=== PATIENT | female | born 1980 | race Caucasian/White ===

== ENCOUNTER 2019-08-17 05:55 | Day surgery (SDC) | payer BC, SELFPAY ==
[2019-08-12 19:05] LABS: Probe Check PASS; Specimen Processing Control PASS
--- NOTE | 2019-08-15 | MASS_PTH ---
PATIENT: THOMAS RODRIGUEZ [place] [facility] [place][id number] AGE/SX: 39/F ROOM: RE08/17/[address]: Dr. Dionte Zhang MD : 1980 BED: DIS: 08/17/2019 SPEC #: [id number] RECD: 08/17/19 08:27 STATUS: ANGELIC MARIA E #: [id number] KEMAR: 08/15/19 00:[address]: Dionte Zhang DEPT: SURGICAL PATHOLOGY RECD BY: Juan Jose Stanton ENTERED: 08/17/19 08:48 SP TYPE: Mass OTHR DR: Dr. Julio Rivera MD Tissues: Cheek, NOS Procedures: Surgery Specimen Level III HEADER OPERATION: Excision infected soft tissue mass cheek PRE-OP DIAGNOSIS: 1.5 cm infected soft tissue mass right medial cheek by melolabial fold TISSUE SUBMITTED: 1.5 cm infected soft tissue mass right medial cheek by melolabial fold MICROSCOPIC DIAGNOSIS Infected soft tissue mass, cheek, excision: Epidermal inclusion cyst. KALA:nancy 08/18/19 MICROSCOPIC DESCRIPTION Slides are reviewed. GROSS DESCRIPTION Received in fixative is one container labeled with the patient's name and designated 1.5 cm infected soft tissue mass right medial cheek by melolabial fold. The specimen consists of a piece of lawrence-white skin ellipse measuring 1.5 x 0.3 cm and up to 0.8 cm in thickness. Also present in the container are two pieces of soft tissue measuring in aggregate 1.5 x 1.5 x 0.5 cm. All three pieces are bisected. The entire specimen is submitted in one cassette. / KALA:nancy 08/17/19 TC:5 CPT: 33331
--- NOTE | 2019-08-16 21:59 | PCM.HP.BLA ---
History and Physical Date of Admission: 08/17/19 HISTORY OF PRESENT ILLNESS 39 year old female presents for evaluation of right medial cheek abscess by the melolabial fold, that required and incision and drainage procedure on 05/05/19 by her PCP. She was placed on Doxycycline at that time. The redness and swelling resolved. She can still feel a soft tissue mass in this area. She presents today for further evaluation and treatment. PAST MEDICAL HISTORY Anxiety and depression Asthma Cervical cancer Premenstrual dysphoric disorder Shoulder pain PAST SURGICAL HISTORY bilateral breast reduction surgery cholecystectomy ALLERGIES No Known Allergies MEDICATIONS albuterol sulfate 90 mcg/actuation aerosol inhaler doxycycline hyclate fluconazole fluoxetine fluoxetine metoprolol succinate montelukast tizanidine FAMILY HISTORY Mother - Anxiety, Brain cancer, Diabetes, Hypertension, Skin cancer Sister - Anxiety Grandmother - Anxiety, Breast cancer, Lung cancer Grandmother - Diabetes Father - Hypertension, Lung cancer Grandfather - Heart disease SOCIAL HISTORY Smoking Status: Heavy Smoker (>10/day) counseling given: provider counseling, counseling >10 minutes alcohol intake: never substance use type: does not use REVIEW OF SYSTEMS General - Denies fever or weight loss. She does complain of fatigue. Eyes - Denies cataracts and glaucoma. ENT - Denies nasal congestion and sore throat at this time but has history of sinus/rhinitis infections. Endocrine - Denies excessive thirst and urination. Bilateral breast reduction 2003. Skin - Denies suspicious lesions and skin cancer. Musculoskeletal - Denies weakness of muscles and joints, back pain, and arthritis. Complains of joint pain and joint stiffness, mostly of right shoulder. Neuro - Has history of headaches related to right shoulder pain. Cardiovascular - Denies chest pain, fatigue, and shortness of breath with exertion. Psych - History of anxiety and depression which is managed on Prozac and Metoprolol. Respiratory - Has a history of Asthma and sleep apnea. She smokes cigarettes. Gastrointestinal - Denies nausea, vomiting, diarrhea, and constipation. Cholecystectomy 2011. Hematologic - Denies abnormal bruising and bleeding. Genitourinary - Denies hematuria and urinary frequency. History of kidney stones. PHYSICAL EXAMINATION General - Alert and oriented. HEENT - PERRL. EOMI. Throat is clear. On the right medial cheek by melolabial fold is a soft tissue mass that was recently infected that necessitated I&D. Measures 1.5 cm. It is mobile. Nontender. No ulceration. No other suspicious lesions noted. Neck - Supple and non-tender. No cervical adenopathy. No suspicious lesions noted. Lungs- Clear to auscultation. Heart - Regular rate and rhythm. Abdomen - Soft and non distended. Extremities - FROM. No axillary adenopathy. Radial pulses are palpable. No suspicious lesions noted. Neuro - CN II-XII grossly intact. Psych - Normal mood and affect. ASSESSMENT 1. 1.5 cm infected soft tissue mass right medial cheek by melolabial fold. 2. Smoker. 3. s/p I&D. PLAN The infected soft tissue mass is stable at the present time. Now is a good time to proceed with excision of this infected soft tissue mass and send it to Pathology for analysis to rule out carcinoma. Depending on what is seen at surgery, some of the tissue may be sent to Microbiology for culture. A positive culture will necessitate antibiotic therapy. Will renew her Doxycycline that she will take for flare ups prior to surgery. She states she gets a yeast infection with antibiotics and will write script for some Diflucan. Will schedule the surgery on an outpatient basis under local anesthesia and IV sedation. If there is adherence of the soft tissue mass to the skin, some additional skin may need to be excised. If a large amount of skin needs to be excised to minimize recurrence, a local skin flap may be needed for reconstruction. She wants to proceed. If she waits, there is the chance that it may get re-infected. She states she doesn't want to experience that pain and redness and swelling ever again. She understands that if she has a flare up at the time of surgery, we will still excise the infected soft tissue mass but won't be able to close the wound and would begin daily dressing changes with Silver dressings. Later on when the infection has cleared up, can proceed with further operative debridement and secondary wound closure. She is aware of that possibility and wishes to proceed. Patient was informed of the risks and complications of the procedure including alternatives to surgery. These were discussed with the patient personally. Patient voices understanding and wishes to proceed. Some of the risks and complications were included in a form from the [employer]. Encouraged patient to stop smoking as it may have deleterious effects on wound healing. We discussed the current risks associated with COVID-19. While it is understood that there is a community spread of COVID-19, the risk of sascha COVID-19 while at [facility] ([facility]) is very low; however, the risk cannot be completely mitigated because of the community spread of the disease. We discussed in detail the risk of exposure to and/or potential harm posed by the COVID-19 virus with having a surgery/procedure at this time versus the risk of delaying the surgery/procedure. It is not possible to know either the risk of delaying the surgery or procedure or chance of getting an infection with perfect accuracy, but a joint decision was made to proceed at this time with the scheduled surgery/procedure as indicated on the consent form. Patient was notified that we will need to comply with any screening or testing [facility] wishes to perform or that surgery may be delayed for any positive results. At the present time there is no testing for the surgeons. The hospital is working on a policy for that to have the surgeon and surgical staff tested. So she has the option to wait until the surgeon and surgical staff are tested or she can proceed with the surgery at this time before the surgeon and surgical staff are tested. As long as the mass in question doesn't dramatically increase in size, the surgery can be temporarily delayed until surgeon and surgical staff testing are done. She thought about the risks and wishes to proceed with surgery at this time. Procedure Criteria Procedure Type: Elective COVID Risk Discussion: The surgeon/proceduralist and patient have discussed in detail the risk of exposure to and/or potential harm posed by the COVID-19 virus with having a surgery/procedure at this time versus the risk of delaying the surgery/procedure. It is not possible to know either the risk of delaying the surgery or procedure or chance of getting an infection with perfect accuracy, but a joint decision was made between the patient and the surgeon/proceduralist to proceed at this time with the scheduled surgery/procedure as indicated on the consent form.
[2019-08-17] VITALS (7 sets, daily range): BP systolic 103–118; BP diastolic 66–81; PULSE 68–74; RESP 16–18; TEMP 35.9–36.2; O2SAT 94–99; BMI 37.3
[2019-08-17 06:35] LABS: Internal QC Validated? YES +Cl - CLEAR BKGD; Pregnancy, Urine Negative Negative
[2019-08-17] MEDS: Lactated Ringers 1,000 ML 100 ML IV (06:35)
[2019-08-17] MEDS: Mupirocin Ointment 22gm Tube 1 APPLIC (08:11)
--- NOTE | 2019-08-17 08:17 | PCM.OPRPT ---
Report of Operation Date of Procedure: 08/17/19 Pre-Operative Diagnosis: 1. 1.5 cm infected soft tissue mass right medial cheek by melolabial fold. 2. Smoker. 3. s/p I&D. Post-Operative Diagnosis: Same. Surgery/Procedure Performed:: Excision 1.5 cm infected soft tissue mass right medial cheek by melolabial fold with 2 cm layered closure. Description of Surgical Findings:: 39 year old female presents for evaluation of right medial cheek abscess by the melolabial fold, that required and incision and drainage procedure on 05/05/19 by her PCP. She was placed on Doxycycline at that time. The redness and swelling resolved. She can still feel a soft tissue mass in this area. Patient was informed of the risks and complications of the procedure including alternatives to surgery. These were discussed with the patient personally. Patient voices understanding and wishes to proceed. Some of the risks and complications were included in a form from the [employer]. Encouraged patient to stop smoking as it may have deleterious effects on wound healing. appraisal technician: None Type of Anesthesia:: Local MAC - xylocaine with epinephrine and IV sedation. Specimen's removed: Infected soft tissue mass right medial cheek by melolabial fold to Pathology and Microbiology. Drains: None. Estimated Blood Loss (mL): 5 ml. Description of Procedure: Patient was taken to OR in supine position and was given IV sedation. The right face was prepped and draped in the usual fashion. SCD's were placed for DVT prophylaxis. Perioperative antibiotics were given intravenously. For the surgery I wore an N95 mask and wore proper eye protection. The infected soft tissue mass right medial cheek by melolabial fold was infiltrated with xylocaine and epinephrine. After waiting 5 minutes for the anesthetic to take effect, I made an oblique elliptical excision around the portion of the mass that was adherent to the overlying skin. Dissection was carried into the subcutaneous tissue. The mass was multilobulated and there was surrounding scar tissue indicative of the chronic nature of the infection. It was also adherent to the underlying muscle and was dissected off the muscle. The mass was sent to Pathology for analysis to rule out carcinoma and a small amount of the tissue was sent to Microbiology for culture. A positive culture will necessitate antibiotic therapy. Hemostasis was obtained with electrocautery. The wound was closed in a layered fashion with 5-0 Monocryl interrupted sutures for the deep dermis and subcutaneous tissue. The skin was approximated with 6-0 Prolene simple interrupted sutures. Steri-strips were applied followed by antibiotic ointment. Patient tolerated the procedure well and was sent to PACU in satisfactory condition. Patient will be sent home on antibiotics and pain medication. She will keep her head elevated during the initial postoperative period. Patient will followup in a week for a wound check and for discussion of the pathology report and for discussion of the microbiology report and for removal of the sutures. A positive culture will necessitate antibiotic therapy. Grafts/Implants Used: None. - Complications None. - Admit VTE Documentation VTE Present on Admission: No VTE Mechan Device Prophylaxis: SCD's VTE Pharm Prophylaxis ordered?: No Surgery Charges CPT - 77449 ICD-10 - R22.0, Z98.890, F17.200, Z87.2
--- NOTE | 2019-08-17 09:00 | DCINST_ITS ---
You will use the following diet at home:: No restrictions Discharge Activity: May not drive while taking narcotic pain medications., May Shower - in two days., - - keep head elevaterd. no heavy lifting. May shower in (days): 2 May resume sexual activity in: No Restrictions Ice area for (Minutes): 5 - as needed for facial swelling. Weight Bearing Status: Weight bearing as tolerated Lifting Restrictions: 20 lbs. Keep extremity elevated above heart level: - - elevate head. Call your doctor if your incision/area has: Continuous Slow Oozing, Sudden Increased Bleeding, Increased Pain/ Swelling, Increased Redness, Foul Smelling Discharge, Swelling at the incision site Call your doctor if you observe: Fever of 101 or Higher, Coldness, Increased Pain, Shortness of breath, Chest pain, Calf discomfort, Uncontrolled pain Suture Line Care: - - apply antibiotic ointment to suture line daily. Cleanse incision/area with: - - may get incision wet in the shower in two days. Additional Dressing/Incision Instructions:: if the steri-strips come loose, patient may remove them. Otherwise they will be removed in the office. Allergies/Adverse Reactions: Allergies No Known Allergies Allergy (Verified 08/17/19 06:22) Medications to take at Discharge albuterol sulfate 90 mcg/actuation aerosol inhaler 2 puff INHALATION Q4H PRN g 06/18/19 fluoxetine 20 mg capsule 20 mg PO .PRN cap 06/18/19 fluoxetine 40 mg capsule 40 mg PO DAILY 06/18/19 metoprolol succinate 25 mg capsule sprinkle, ext. release 24 hr 25 mg PO .PRN ea 06/18/19 montelukast 10 mg tablet 10 mg PO QPM 06/18/19 tizanidine 4 mg capsule 4 mg PO .PRN cap 06/18/19 Fluconazole 150 mg PO DAILY PRN 08/07/19 Clindamycin HCl [Cleocin] 300 mg PO TID #15 cap 08/17/19 Oxycodone HCl/Acetaminophen [Percocet 5/325] 1 tablet PO TID PRN PRN 7 Days #21 tablet 08/17/19 The following prescriptions were given: Clindamycin HCl [Cleocin] 300 mg PO TID #15 cap Transmission Status: Pending to [facility]/pharmacy #[id number] Oxycodone HCl/Acetaminophen [Percocet 5/325] 1 tablet PO TID PRN PRN 7 Days #21 tablet PRN Reason: Pain Score 4-5/10 Transmission Status: Received by [facility]/pharmacy #[id number] Primary Care Physician: Julio Rivera MD [Primary Care Provider] - Test Results: Test results from this visit will be discussed in further detail at your follow- up appointment, if applicable. Please Follow Up With: Dionte Zhang MD When: one week. call [phone] for appt. Proposed Discharge Date: 08/17/19
== END 2019-08-17 09:16 | disposition home or self-care (01) ==
LOC: SDC 05:55 → AC 05:56
PROVIDERS: Anesthesiology; PCP Family Medicine; Referring Provider Surgery; Visit Provider Surgery
PROC: (CPT 21011; principal; 2019-08-17 07:20)
DX: L72.0 Epidermal cyst (principal); Z98.890 Other specified postprocedural states; Z87.2 Personal history of diseases of the skin and subcutaneous tissue; Z11.59 Encounter for screening for other viral diseases; F41.9 Anxiety disorder, unspecified; F32.9 Major depressive disorder, single episode, unspecified; J45.909 Unspecified asthma, uncomplicated; Z85.41 Personal history of malignant neoplasm of cervix uteri; Z79.899 Other long term (current) drug therapy; F17.200 Nicotine dependence, unspecified, uncomplicated
CPT/HCPCS: 00300; 21011; 81025; 87070; 87075; 87077; 87102; 87176; 87205; 87206; 87635; 88304; 88305; G2023; J7120; J2405; U0003

== ENCOUNTER 2021-05-01 15:50 | Outpatient (CLI) | payer OTHER, SELFPAY ==
--- NOTE | 2021-05-01 15:52 | BI_ITS ---
MAMMOGRAPHY - BILATERAL SCREENING 3-D TOMOSYNTHESIS REASON FOR EXAM: Female, 41 years old. SCREENING PERTINENT HISTORY: No significant family history. TECHNIQUE: 2-D mammograms and 3-D Tomosynthesis of the breast (s) were performed. CAD was performed. COMPARISON: None. FINDINGS: The breast composition is heterogeneously dense that can obscure small breast masses. Scattered benign calcifications are seen. No dense spiculated masses or suspicious microcalcifications are identified. No architectural distortion is identified. There is no skin thickening or retraction. There has been no significant change since the prior study. BI/SCRN MAMM (CAD)W/JOSE BILAT IMPRESSION: No mammographic signs of malignancy. Routine yearly mammograms recommended. ASSESSMENT CATEGORY: BIRADS Category 1: Negative. A letter regarding these results will be sent to the patient by the facility within 30 days. FOLLOW UP RECOMMENDATION: Yearly follow up mammogram recommended. (A) Approximately 10% of breast cancers are not detected by mammography. A normal mammogram should not delay biopsy of a clinically suspicious abnormality. Electronically Signed: Peyman Adams MD at 16:53 EDT ,
== END 2021-05-01 23:59 | disposition home or self-care (01) ==
LOC: OPBI 15:50
PROVIDERS: PCP Family Medicine; Visit Provider Registered Nurse
DX: Z12.31 Encounter for screening mammogram for malignant neoplasm of breast (principal)
CPT/HCPCS: 77063; 77067

== ENCOUNTER → 2022-12-28 | Outpatient (CLI) | payer OTHER, SELFPAY ==
--- NOTE | 2022-12-28 08:13 | BI_ITS ---
MAMMOGRAPHY - BILATERAL SCREENING REASON FOR EXAM: Female, 42 years old. Routine annual screening examination. PERTINENT HISTORY: Grandmother with breast cancer. History of prior bilateral breast reduction surgery. History of bilateral breast scars. TECHNIQUE: Digital bilateral breast jose (3D mammographic acquisition) in the CC and MLO projections. 2-D mediolateral oblique (MLO) and craniocaudad (CC) views of both breasts were obtained. CAD: Full Field Digital Mammography with Computer Added Detection was performed. COMPARISON: Comparison is made with prior study May 01, 2021. FINDINGS: Breast Composition: The breasts are heterogeneously dense, which may obscure small masses. There are no dominant masses or suspicious calcifications. Stable retroareolar density calcified nodules in keeping with history of prior surgery and postoperative dystrophic changes. Stable small benign-appearing bilateral axillary lymph nodes. No other significant abnormalities are identified. There has been no significant change since the prior study. BI/SCRN MAMM (CAD)W/JOSE BILAT IMPRESSION: Stable bilateral screening mammogram. Yearly follow-up mammogram recommended. (A) ASSESSMENT CATEGORY: BIRADS Category 2: Benign. A letter regarding these results will be sent to the patient by the facility within 30 days. Approximately 10% of breast cancers are not detected by mammography. A normal mammogram should not delay biopsy of a clinically suspicious abnormality. [id number] Electronically Signed: Denny Sheldon MD at 9:24 EST ,
== END | disposition home or self-care (01) ==
LOC: OPBI 08:12
PROVIDERS: PCP Family Medicine; Referring Provider Family Medicine; Visit Provider Family Medicine
DX: Z12.31 Encounter for screening mammogram for malignant neoplasm of breast (principal); Z80.3 Family history of malignant neoplasm of breast
CPT/HCPCS: 77063; 77067

== ENCOUNTER → 2024-01-15 | Outpatient (CLI) | payer OTHER, SELFPAY ==
[2024-01-15 11:34] LABS: Anion Gap 5 (5-15); BUN 9 mg/dL (7-18); BUN/Creat Ratio 11.2 RATIO (10-20); Chloride 112 mmol/L (98-107); EST Glomerular Filtration Rate 82 mL/min (>60); Est Glom Filt Rate - Afr Amer 99 mL/min (>60); Glucose 104 mg/dL (74-106); Sodium Level 140 mmol/L (136-145)
== END | disposition home or self-care (01) ==
LOC: MTLAB 07:10
PROVIDERS: PCP Family Medicine; Referring Provider Nurse Practitioner Family; Visit Provider Nurse Practitioner Family
DX: Z13.1 Encounter for screening for diabetes mellitus (principal)
CPT/HCPCS: 36415; 80048

== ENCOUNTER → 2024-02-18 | Outpatient (CLI) | payer OTHER, SELFPAY ==
[2024-02-18 10:25] LABS: Hemoglobin A1c 5.8 % (3.8-5.6)
== END | disposition home or self-care (01) ==
LOC: MTLAB 07:03
PROVIDERS: PCP Family Medicine; Referring Provider Nurse Practitioner Family; Visit Provider Nurse Practitioner Family
DX: R73.01 Impaired fasting glucose (principal)
CPT/HCPCS: 36415; 83036

== ENCOUNTER 2024-04-20 08:22 | Day surgery (SDC) | payer OTHER, SELFPAY ==
[2024-04-20] VITALS (7 sets, daily range): BP systolic 96–134; BP diastolic 58–87; PULSE 73–98; RESP 16–22; TEMP 36.1–36.6; O2SAT 93–98; BMI 36.8
--- NOTE | 2024-04-20 08:37 | HP.PCM_ITS ---
HPI - General General Date of Service: 04/20/24 HPI Narrative THOMAS RODRIGUEZ, is a 44 F who presents for colonoscopy due to positive Cologuard. Patient denies any changes since office visit. Office visit 03/16/2024 HPI HPI: 43-year-old female presents due to positive Cologuard. Patient states she has bowel movements daily denies any blood. Patient denies any chronic abdominal pain/nausea/vomiting/reflux. Patient denies any family history of colon cancer. [facility] Medical History Wears glasses Cancer Anxiety Wears dentures History of IBS Chronic cough CPAP (continuous positive airway pressure) dependence Sleep apnea History of kidney stones Positive colorectal cancer screening using Cologuard test Epidermal inclusion cyst Premenstrual dysphoric disorder Shoulder pain Anxiety and depression Cervical cancer Asthma Allergies Home Medications ?Medication ?Instructions ?Recorded ?Last Taken ?Type albuterol sulfate 90 mcg/actuation 2 puff inhalation Q 4H PRN Asthma 06/18/19 04/20/24 History aerosol inhaler (ProAir HFA) metoprolol succinate 25 mg capsule 25 mg PO PRN PRN an xiety 06/18/19 Unknown History sprinkle, ext. release 24 hr Allergy/AdvReac Type Severity Reaction Status Date / Time procaine (From Novocain) AdvReac Other Verified 04/20/24 08:55 Family History Mother Anxiety Brain cancer Diabetes Hypertension Skin cancer Sister Anxiety Grandmother Anxiety Breast cancer Lung cancer Grandmother Diabetes Father Hypertension Lung cancer Grandfather Heart disease Surgical History History of lithotripsy H/O LEEP History of excision of lesion History of bilateral breast reduction surgery History of cholecystectomy Social History Smoking Status: Heavy Smoker (>10/day) alcohol intake: never substance use type: does not use additional social history: DOES NOT TAKE ASPIRIN DOES TAKE IBUPROFEN NEEDED Past Medical/Surgical History Planned Operation Planned Operative Procedure(s): CSCOPE S.O.S: No Previous Hospitalizations/Surgeries HX Hospitalizations: No HX of Surgeries: bilat breast reduction 2004 leep 1998 gallbladder 2012 kidney stone Any Problems With Anesthesia: No You/Your Family Experience Fever (Hyperthermia) With Anes: No Cholinesterase deficiency: No Cardiovascular Hx Chest Pain within Last 2 months: No Hx of Irregular Heartbeat and/or Afib: No Hx Heart Attack: No Hx Congestive Heart Failure: No Hx Rheumatic Fever: No Hx Hypertension: No Hx Internal Defibrillator: No Hx Pacemaker: No Hx Cardiac Catheterization: No Hx Cardiac Surgery/Stents/Etc.: No Hx Stress Test: No Hx Pain in Legs when Walking/Leg Cramps: No Respiratory Chronic Cough: Yes HX of Shortness of Breath: Yes (states sob with 2 flights stairs) Hoarseness: No Hx Chronic Obstructive Pulmonary Disease (COPD): No Hx Asthma: Yes (inhaler as needed) Hx Emphysema: No Hx Sleep Apnea: Yes CPAP: Yes (NONCOMPLAINT) BIPAP: No Hx Respiratory Tract Infection/Cold (presently): No Result (for STOP score): Positive Hx Smoking: Yes (1ppd x 26 yrs) Smoking Status: Heavy Smoker (>10/day) Gastrointestinal Hx Gastrointestinal Disorders: No Hx Gastrointestinal Bleed: No Hx Ulcer: No Hx Hiatal Hernia: No Difficulty Chewing/Swallowing: No Special diet followed at home: No Hx Unplanned Weight Loss of 20#: No HX Unplanned Weight Gain of 20#: No Neurological Hx Seizures: No HX Syncope/Blackout Spells/Unconsciousness: No Hx Transient Ischemic Attacks (TIA): No Hx Multiple Sclerosis: No Hx Parkinson's Disease: No Hx Head/Neck Injury: No Hx Headaches: Yes (chronic non limiting shoulder pain) Hx Back Injury/Pain: No Recent Onset of Speech Difficulty: No Restless Legs: No Does patient have nerve stimulator: No Blood Disorder Hx Leukemia: No Bleeding Tendencies: No Hx Deep Vein Thrombosis: No Hx High Cholesterol: No Blood Transmitted Disease: No Hx Hepatitis: No Hx Cirrhosis: No Hx Anemia: No Hx Blood Disorders: No Reproduction : No Is Patient Lactating: No Hx Hysterectomy: No Hx Tubal Ligation: No (IUD) Are You Post Menopause: No Genitourinary Hx Renal Disease: No Musculoskeletal Hx Arthritis: No Hx Rheumatoid Arthritis: No Hx Gout: No Recent Onset of an Orthopedic Problem: No Endocrine Hx Diabetes: No Thyroid Disease: No Hx Steroid Therapy: No Psycho/Social Hx Substance Use: No Hx Alcohol Use: No Hx Anxiety: Yes (on med) Hx Depression: Yes (on med) Mental Illness: No Hx Dementia: No Miscellaneous Hx Cancer: Yes (pre ca /LEEP) Recent Exposure to Contagious Disease: No Hx of C-Diff: No Any Loose Teeth: No (upper denture) Allergies procaine (From Novocain) Adverse Reaction (Verified 04/20/24 08:55) Other migraine Discharge Is Pt Admitted From a Long-Term, or a Skilled Nursing: No After D/C, Where Do you Plan to Go: Return Home Physical Exam Const alert, oriented x3 and no apparent distress HEENT normocephalic and head/scalp atraumatic Resp normal respiratory effort Cardio regular rate GI soft to palpation and non-tender; Negative for non-distended Palpation: Negative for guarding Extremity no clubbing, cyanosis or edema Skin no rashes or lesions noted Neuro CN's II-XII intact bilaterally Psych mental status grossly normal Assessment & Plan Assessment/Plan (1) Positive colorectal cancer screening using Cologuard test: Surgery Risks - Colonoscopy I discussed with the patient the risks of the procedure: Yes Risks Include but are not Limited To: Risks include but are not limited to: Bleeding, perforation requiring further surgery, inability to complete colonoscopy requiring barium enema.
--- NOTE | 2024-04-20 09:18 | PCM.PRE.AN2 ---
ASA Classification* ASA Classification ASA Classification: 2 Assessment & Plan Anesthesia* Anesthesia Assessment Anesthesia Assessment: Discussed sedation and/or anesthesia options, risks, benefits, and alternatives with patient/parents/legal guardian/POA. Questions invited. The patient/parents/legal guardian/POA seems to understand and agrees to proceed with anesthesia plan. Reviewed the physical assessment, medical history, allergy history and patient home medications list prior to surgery/procedure/anesthetic and documented any changes. Performed airway and anesthesia risk assessments. Anesthesia Type Anesthesia Type: MAC Anesthesia Focused Assessment* Temperature: 98 F Pulse Rate: 98 Blood Pressure: 134/87 Respiratory Rate: 16 Pulse Ox: 98 Airway Assessment Mouth opens: >3 cm Mallampati Score: II Focused Labs Anesthesia Preop lab: CBC WBC 11.2 K/mm3 (4.4-11.0) H 09/25/13 08:32 09/25/13 RBC 4.83 M/mm3 (4.2-5.4) 09/25/13 08:32 09/25/13 Hgb 15.4 g/dl (12.0-15.0) H 09/25/13 08:32 09/25/13 Hct 45.0 % (37-47) 09/25/13 08:32 09/25/13 Plt Count 413 K/mm3 (150-450) 09/25/13 08:32 09/25/13 CHEMISTRY Potassium 4.0 mmol/L (3.5-5.1) 01/15/24 07:10 01/15/24 Sodium 140 mmol/L (136-145) 01/15/24 07:10 01/15/24 BUN 9 mg/dL (7-18) 01/15/24 07:10 01/15/24 Creatinine 0.80 mg/dL (0.55-1.02) 01/15/24 07:10 01/15/24 Glucose 104 mg/dL (74-106) 01/15/24 07:10 01/15/24 TSH 1.85 uIU/mL (0.358-3.74) 09/25/13 08:32 09/25/13 COAG Urine Test Negative Negative 08/17/19 06:15 08/17/19 Pre-Assessment Diagnosis/Proposed Procedure Planned Operative Procedure(s): CSCOPE Anesthesia History Anesthesia History - manufacturer's representative: Anesthesia History - manufacturer's representative Hx Hospitalization No 04/20/24 08:38 Any Problems With Anesthesia No 04/20/24 08:38 Cholinesterase deficiency No 04/20/24 08:38 You/Your Family Experience No 04/20/24 08:38 fever (hyperthermia) with Relationship Recent Exposure to Contagious No 04/20/24 08:55 Disease Does patient have nerve No 04/20/24 08:38 stimulator Patient instructed to have device shut off --Does patient have Pacemaker No 04/20/24 08:55 or ICD? When Was Last Pacemaker Check QUESTION #4 FULL TEXT: You/Your Family Experience fever (hyperthermia) with Anesthesia Last Oral Intake Last Oral intake: Last Oral Intake NPO since Meds taken in AM with sips of water? Meds patient instructed to take am of surgery PONV PONV - manufacturer's representative: PONV - manufacturer's representative Female Yes 04/15/24 14:26 HX of Motion Sickness No 04/15/24 14:26 HX of N/V After Surgery Yes 04/15/24 14:26 Non-Smoker No 04/15/24 14:26 Duration of Surgery greater No 04/15/24 14:26 than 60 minutes Number of Risk Factors 2 04/15/24 14:26 PONV Score Moderate Risk 04/15/24 14:26 Height & Weight Height & Weight: Anesthesia: Height & Weight Height 4 ft 11 in 04/20/24 08:55 Weight: 82.8 kg 04/20/24 08:55 Body Mass Index (BMI) 36.8 04/20/24 08:55 Respiratory Assessment Respiratory Assessment - manufacturer's representative: Respiratory Tract Infection Hx - manufacturer's representative Hx Respiratory Tract Infection No 04/20/24 08:38 STOP Sleep Apnea STOP Sleep Apnea - manufacturer's representative: STOP Sleep Apnea - manufacturer's representative Hx Hypertension No 04/20/24 08:38 Hx Sleep Apnea Yes 04/20/24 08:38 CPAP Yes: NONCOMPLAINT 04/20/24 08:38 BIPAP No 04/20/24 08:38 Do you snore loudly (louder than talking or can be heard Do you often feel tired/ fatigued/ sleepy during daytime? Has anyone observed you stop breathing during sleep? STOP Results Positive 04/20/24 08:38 QUESTION #5 FULL TEXT : Do you snore loudly (louder than talking or can be heard through closed doors)? 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 Specify any problems Hx of Preganancy in last 3 N/A 04/15/24 14:26 Months Nurse Filling Out Transfusion NBUCHER 04/15/24 14:26 & Questions: Date: 04/15/24 04/15/24 14:26 Time: 14:28 04/15/24 14:26 Patient unable to answer at this time (ie. confused, unrespo /Reproduction History /Reproductive History - manufacturer's representative: /Reproductive Hx- manufacturer's representative Hx Now No 04/20/24 08:38 Gestational Age (in weeks): EDC: Hx Hx Para Hx Section SAB No 04/15/24 14:26 PFSH Medical History Wears glasses Cancer Anxiety Wears dentures History of IBS Chronic cough CPAP (continuous positive airway pressure) dependence Sleep apnea History of kidney stones Positive colorectal cancer screening using Cologuard test Epidermal inclusion cyst Premenstrual dysphoric disorder Shoulder pain Anxiety and depression Cervical cancer Asthma Allergies Home Medications ?Medication ?Instructions ?Recorded ?Last Taken ?Type albuterol sulfate 90 mcg/actuation 2 puff inhalation Q4H PRN Asthma 06/18/19 04/20/24 History aerosol inhaler (ProAir HFA) metoprolol succinate 25 mg capsule 25 mg PO PRN PRN anxiety 06/18/19 Unknown History sprinkle, ext. release 24 hr Allergy/AdvReac Type Severity Reaction Status Date / Time procaine (From Novocain) AdvReac Other Verified 04/20/24 08:55 Family History Mother Anxiety Brain cancer Diabetes Hypertension Skin cancer Sister Anxiety Grandmother Anxiety Breast cancer Lung cancer Grandmother Diabetes Father Hypertension Lung cancer Grandfather Heart disease Surgical History History of lithotripsy H/O LEEP History of excision of lesion History of bilateral breast reduction surgery History of cholecystectomy Social History Smoking Status: Heavy Smoker (>10/day) alcohol intake: never substance use type: does not use additional social history: DOES NOT TAKE ASPIRIN DOES TAKE IBUPROFEN NEEDED Review of Systems (Anesthesia) ROS Narrative System reviewed and no additional complaints, except as documented.
[2024-04-20 09:21] LABS: Internal QC Validated? YES +Cl - CLEAR BKGD
[2024-04-20 09:22] LABS: Pregnancy, Urine Negative Negative
--- NOTE | 2024-04-20 10:24 | PCM.POST.ANE ---
Anesthesia: Postop Eval I Current Vital Signs Temperature: 97 F Pulse Rate: 86 Blood Pressure: 103/66 Respiratory Rate: 22 Pulse Ox: 94 Oxygen Delivery Method: Room Air Assessment Airway patent: Yes Spontaneous unlabored respirations: Yes Mental status: Asleep nausea: No Vomiting: No Anesthesia Complication: No Fluid Hydration Crystalloid volume administer (ml): 60 Total IV fluid infused: 60 Progress Note Anesthesia document: Postop Eval 1 completed: Yes
--- NOTE | 2024-04-20 10:31 | OP.COLON_ITS ---
Patient Name: Caitlin Wyman Procedure Date: 04/20/2024 9:52 AM Date of : 1980 Age: 44 Procedure: Colonoscopy Indications: Positive Cologuard test Providers: Savanna Reynoso MD Referring MD: Julio Rivera Medicines: Monitored Anesthesia Care Patient Profile: This is a 44 year old female. Last Colonoscopy: none. The patient's first colonoscopy is today. Complications: No immediate complications. Procedure: Pre-Anesthesia Assessment: - Prior to the procedure, a History and Physical was performed, and patient medications and allergies were reviewed. The patient's tolerance of previous anesthesia was also reviewed. The risks and benefits of the procedure and the sedation options and risks were discussed with the patient. All questions were answered, and informed consent was obtained. Prior Anticoagulants: The patient has taken no anticoagulant or antiplatelet agents. ASA Grade Assessment: Per anesthesia. After reviewing the risks and benefits, the patient was deemed in satisfactory condition to undergo the procedure. After I obtained informed consent, the scope was passed under direct vision. Throughout the procedure, the patient's blood pressure, pulse, and oxygen saturations were monitored continuously. The pediatric colonoscope was introduced through the anus and advanced to the cecum, identified by the appendiceal orifice, ileocecal valve and palpation. The colonoscopy was performed without difficulty. The patient tolerated the procedure well. The quality of the bowel preparation was good. Scope In: 10:00:30 AM Scope Withdrawal Time 0 hours 8 minutes 16 seconds Scope Out: 10:13:17 AM Total Procedure Duration Time 0 hours 12 minutes 47 seconds Findings: Non-bleeding internal hemorrhoids were found [Method Found]. The hemorrhoids were Grade I (internal hemorrhoids that do not prolapse). The exam was otherwise without abnormality. Impression: - Non-bleeding internal hemorrhoids. - The examination was otherwise normal. - No specimens collected. Recommendation: - Discharge patient to home. - Resume previous diet. - Continue present medications. - Repeat colonoscopy in 10 years for screening purposes. Procedure Code(s): --- Professional --- 36533, PT, Colonoscopy, flexible; diagnostic, including collection of specimen(s) by brushing or washing, when performed (separate procedure) Diagnosis Code(s): --- Professional --- K64.0, First degree hemorrhoids R19.5, Other fecal abnormalities CPT copyright 2021 [employer]. All rights reserved. The codes documented in this report are preliminary and upon derivatives trader review may be revised to meet current compliance requirements. MD Savanna Hernandez MD 04/20/2024 10:30:40 AM This report has been signed electronically. Number of Addenda: 0 Note Initiated On: 04/20/2024 9:52 AM
--- NOTE | 2024-04-20 10:31 | OP.CCLET_ITS ---
04/20/2024 Julio Rivera [address] [place] [address] Re : Colonoscopy procedure for Caitlin Wyman Dear Dr. Rivera This procedure was performed on Saturday, April 20, 2024. My impressions and recommendations are as follows: Impressions : - Non-bleeding internal hemorrhoids. - The examination was otherwise normal. - No specimens collected. Recommendations : - Discharge patient to home. - Resume previous diet. - Continue present medications. - Repeat colonoscopy in 10 years for screening purposes. My findings are described in the full procedure note, which is enclosed. If I can be of further assistance, please feel free to contact me at Doctor phone number(s): , Work: . Sincerely, MD Savanna Hernandez MD 04/20/2024 10:30:40 AM This report has been signed electronically.
--- NOTE | 2024-04-20 10:35 | PCM.POSTANE2 ---
Anesthesia Postop Eval I Sum Postop Eval Completion status Anesthesia document: Postop Eval 1 completed: Yes Anesthesia Postop Eval I Summary Anesthesia Postop Eval I Summary: Anesthesia Postop Eval I: Assessment Summary Airway patent Yes 04/20/24 10:25 [email or web address] Spontaneous unlabored Yes 04/20/24 10:25 [email or web address] respirations Mental status Asleep 04/20/24 10:25 [email or web address] nausea No 04/20/24 10:25 [email or web address] Vomiting No 04/20/24 10:25 [email or web address] Anesthesia Postop Eval I: Fluid Summary Crystalloid volume administer 60 04/20/24 10:25 [email or web address] (ml) Colloids volume administered ( ml) Blood Product volume administered (ml) Total IV fluid infused 60 04/20/24 10:25 [email or web address] Anesthesia Postop Eval I: Summary Notes Anesthesia Complication No 04/20/24 10:25 [email or web address] Anesthesia Complication Comment: Post-operative progress note Anesthesia: Postop Eval II Evaluation Mental status: Awake Pain Level: 0 nausea: No Vomiting: No
== END 2024-04-20 10:52 | disposition home or self-care (01) ==
LOC: EN 08:22 → AC 08:23
PROVIDERS: Anesthesiology; PCP Family Medicine; Referring Provider Family Medicine; Visit Provider Surgery
PROC: 0DJD8ZZ Inspection of Lower Intestinal Tract, Via Natural or Artificial Opening Endoscopic (ICD-10-PCS; CPT 45378; principal; 2024-04-20 09:40)
DX: R19.5 Other fecal abnormalities (principal); K64.0 First degree hemorrhoids; G47.30 Sleep apnea, unspecified; Z99.89 Dependence on other enabling machines and devices; Z85.41 Personal history of malignant neoplasm of cervix uteri; F41.8 Other specified anxiety disorders; Z79.899 Other long term (current) drug therapy; Z90.49 Acquired absence of other specified parts of digestive tract; F17.200 Nicotine dependence, unspecified, uncomplicated
CPT/HCPCS: 45378; 81025; A4216; J2405